=== PATIENT | male | born 1995 | race Caucasian/White ===

== ENCOUNTER 2016-10-16 04:32 | Observation (INO) | payer OTHER ==
[2016-10-16] MEDS ORDERED: NS 1,000 ML IV ONE (04:53)
--- NOTE | 2016-10-16 04:53 | EDPHY ---
H & P Stated Complaint: RUQ pain, diarrhea, nausea x 2 weeks HPI/ROS: Chief Complaint: Abdominal pain, diarrhea HPI: 21-year-old male woke this morning with pain in the right side of his abdomen. Some nausea no vomiting. Patient states that he has been having diarrhea for the last 2 weeks ever since returning from a week-long trip to [place]. He has been having intermittently loose to watery stools 2 to 3 times a day for the last 2 weeks. No blood. Has no fevers, some chills. Has not had any pain or cramping prior to today. This morning the pain woke him up from sleep. Is about a 6/10. It is no right middle abdomen. It is constant. There are no aggravating or alleviating factors. ROS: 10 point Review of Systems is negative except as noted in the HPI. PMH: None Medications: None Allergies: Sulfa Social History: No smoking, positive alcohol, occasional marijuana Family History: non-contributory Physical Exam: Gen: Awake, Alert, No Distress HEENT: Nose: no rhinorrhea Eyes: PERRLA, EOMI Mouth: Moist mucosa Neck: Supple, no JVD Chest: nontender, lungs clear to auscultation Heart: S1, S2 normal, no murmur Abd: Soft, he has tenderness in the right lower quadrant right at McBurney's point, no rebound, no guarding Back: no CVA tenderness, no midline tenderness Ext: no edema, non-tender Skin: no rash Neuro: CN II-XII intact, Sensation grossly intact, Strength 5/5 in bilateral upper and lower extremities - Personal History Current Tetanus Diphtheria and Acellular Pertussis (TDAP): Yes - Medical/Surgical History Hx Asthma: No Hx Chronic Respiratory Disease: No Hx Diabetes: No Hx Cardiac Disease: No Hx Renal Disease: No Hx Cirrhosis: No Hx Alcoholism: No Hx HIV/AIDS: No Hx Splenectomy or Spleen Trauma: No Other PMH: denies - Social History Smoking Status: Never smoked Constitutional: Initial Vital Signs Temperature (C) 36.9 C 10/16/16 04:36 Heart Rate 64 10/16/16 04:36 Respiratory Rate 18 10/16/16 04:36 Blood Pressure 137/82 H 10/16/16 04:36 O2 Sat (%) 97 10/16/16 04:36 O2 Delivery Mode Room Air Allergies/Adverse Reactions: Sulfa (Sulfonamide Antibiotics) Allergy (Verified 10/16/16 04:35) Home Medications: Medication Instructions Recorded NK [No Known Home Meds] 10/16/16 Medical Decision Making - Diagnostics Imaging Results: CT scan shows an 8.2 mm appendix consistent with early acute appendicitis as interpreted by Dr. Reina. ED Course/Re-evaluation: 21-year-old male has been having 2 weeks of diarrhea and now has right lower quadrant abdominal pain and tenderness. Will obtain blood work and a CT scan of his abdomen and pelvis to rule out acute appendicitis. He has no right upper quadrant tenderness. No epigastric tenderness. CT scan shows an 8.2 mm appendicitis. There is no fluid. No abscess cut, no perforation. I have discussed with Dr. Grey, surgery. He will see the patient in the ED. - Data Points Laboratory Results: Laboratory Results 10/16/16 05:05 10/16/16 05:05 10/16/16 10/16/16 10/16/16 05:29 05:05 05:05 WBC 4.80 10^3/uL 10^3/uL (3.80-9.50) RBC 5.12 10^6/uL 10^6/uL (4.40-6.38) Hgb 15.9 g/dL g/dL (13.7-17.5) Hct 44.5 % % (40.0-51.0) MCV 86.9 fL fL (81.5-99.8) MCH 31.1 pg pg (27.9-34.1) MCHC 35.7 g/dL g/dL (32.4-36.7) RDW 11.8 % % (11.5-15.2) Plt Count 191 10^3/uL 10^3/uL (150-400) MPV 9.1 fL fL (8.7-11.7) Neut % (Auto) 57.1 % % (39.3-74.2) Lymph % (Auto) 30.2 % % (15.0-45.0) [place] % (Auto) 8.1 % % (4.5-13.0) Eos % (Auto) 4.0 % % (0.6-7.6) Baso % (Auto) 0.2 % L % (0.3-1.7) Nucleat RBC Rel Count 0.0 % % (0.0-0.2) Absolute Neuts (auto) 2.74 10^3/uL 10^3/uL (1.70-6.50) Absolute Lymphs (auto) 1.45 10^3/uL 10^3/uL (1.00-3.00) Absolute Monos (auto) 0.39 10^3/uL 10^3/uL (0.30-0.80) Absolute Eos (auto) 0.19 10^3/uL 10^3/uL (0.03-0.40) Absolute Basos (auto) 0.01 10^3/uL L 10^3/uL (0.02-0.10) Absolute Nucleated RBC 0.00 10^3/uL 10^3/uL (0-0.01) Immature Gran % 0.4 % % (0.0-1.1) Immature Gran # 0.02 10^3/uL 10^3/uL (0.00-0.10) Sodium 142 mEq/L mEq/L (134-144) Potassium 4.1 mEq/L mEq/L (3.5-5.2) Chloride 103 mEq/L mEq/L (97-110) Carbon Dioxide 26 mEq/l mEq/l (22-31) Anion Gap 13 mEq/L mEq/L (8-16) BUN 20 mg/dL mg/dL (7-23) Creatinine 1.3 mg/dL mg/dL (0.7-1.3) Estimated GFR > 60 Glucose 91 mg/dL mg/dL (70-100) Calcium 9.8 mg/dL mg/dL (8.5-10.4) Total Bilirubin 0.7 mg/dL mg/dL (0.1-1.4) Conjugated Bilirubin 0.3 mg/dL mg/dL (0.0-0.5) Unconjugated Bilirubin 0.4 mg/dL mg/dL (0.0-1.1) AST 26 IU/L IU/L (17-59) ALT 30 IU/L IU/L (21-72) Alkaline Phosphatase 70 IU/L IU/L (38-126) Total Protein 7.8 g/dL g/dL (6.3-8.2) Albumin 4.8 g/dL g/dL (3.5-5.0) Lipase 82.0 IU/L IU/L (23-300) Urine Color YELLOW Urine Appearance CLEAR Urine pH 6.0 (5.0-7.5) Ur Specific [place] 1.029 (1.002-1.030) Urine Protein NEGATIVE (NEGATIVE) Urine Ketones NEGATIVE (NEGATIVE) Urine Blood NEGATIVE (NEGATIVE) Urine Nitrate NEGATIVE (NEGATIVE) Urine Bilirubin NEGATIVE (NEGATIVE) Urine Urobilinogen NEGATIVE EU EU (0.2-1.0) Ur Leukocyte Esterase NEGATIVE (NEGATIVE) Urine Glucose NEGATIVE (NEGATIVE) Medications Given: Discontinued Medications Sodium Chloride (Ns) 1,000 mls @ 0 mls/hr IV ONCE ONE PRN Reason: Wide Open Stop: 10/16/16 04:54 Last Admin: 10/16/16 05:05 Dose: 1,000 mls Departure - Departure Disposition: [facility] Inpatient Acute Clinical Impression: Acute appendicitis Condition: Fair Referrals: NONE *PRIMARY CARE P,. [Primary Care Provider] - As per Instructions
[2016-10-16 05:12] LABS: % IMMATURE GRANULYOCYTES 0.4 % (0.0-1.1); ABSOLUTE IMMATURE GRANULOCYTES 0.02 10^3/uL (0.00-0.10); ADD DIFF? NO; ADD MORPH? NO; ADD SCAN? NO; ATYPICAL LYMPHOCYTE FLAG 50 (0-99); FRAGMENT RBC FLAG 0 (0-99); HEMATOCRIT 44.5 % (40.0-51.0); HEMOGLOBIN 15.9 g/dL (13.7-17.5); LEFT SHIFT FLG 0 (0-99); LIPEMIA HEMOLYSIS FLAG 90 (0-99); MEAN CELL HEMOGLOBIN 31.1 pg (27.9-34.1); MEAN CELL HEMOGLOBIN CONCENTR. 35.7 g/dL (32.4-36.7); MEAN CELL VOLUME 86.9 fL (81.5-99.8); MEAN PLATELET VOLUME 9.1 fL (8.7-11.7); PLATELET CLUMPS FLAG 60 (0-99); PLATELET COUNT 191 10^3/uL (150-400); RED BLOOD CELL COUNT 5.12 10^6/uL (4.40-6.38); RED CELL DISTRIBUTION WIDTH 11.8 % (11.5-15.2)
[2016-10-16] MEDS ORDERED: IOPAMIDOL (ISOVUE-300) 100 ML BTL ONE (05:28)
[2016-10-16 05:31] LABS: ALANINE AMINOTRANSFERASE 30 IU/L (21-72); ALBUMIN 4.8 g/dL (3.5-5.0); ALKALINE PHOSPHATASE 70 IU/L (38-126); ANION GAP 13 mEq/L (8-16); ASPARTATE AMINOTRANSFERASE 26 IU/L (17-59); BILIRUBIN,TOTAL 0.7 mg/dL (0.1-1.4); BILIRUBIN-CONJUGATED 0.3 mg/dL (0.0-0.5); BILIRUBIN-UNCONJUGATED 0.4 mg/dL (0.0-1.1); CALCIUM 9.8 mg/dL (8.5-10.4); CARBON DIOXIDE 26 mEq/l (22-31); CHLORIDE 103 mEq/L (97-110); CREATININE 1.3 mg/dL (0.7-1.3); GLOMERULAR FILTRATION RATE > 60; GLUCOSE 91 mg/dL (70-100); POTASSIUM 4.1 mEq/L (3.5-5.2); SODIUM 142 mEq/L (134-144); TOTAL PROTEIN 7.8 g/dL (6.3-8.2)
[2016-10-16 05:50] LABS: COLOR YELLOW; LEUKOCYTE ESTERASE,URINE NEGATIVE (NEGATIVE); NITRITE,URINE NEGATIVE (NEGATIVE)
[2016-10-16] MEDS ORDERED: ERTAPENEM 1 GM in NS 100 ML IV ONE (06:13)
[2016-10-16] MEDS ORDERED: BUPIVACAINE 0.5% 30 ML SDV ONE ×2 (06:22→07:15)
[2016-10-16 06:27] VITALS: RESP 16
[2016-10-16] MEDS ORDERED: MIDAZOLAM 2 MG/2 ML VIAL IVP ONE (06:55)
[2016-10-16] MEDS ORDERED: LR 1,000 ML IV ONE (07:05)
--- NOTE | 2016-10-16 07:06 | PDANEPAE ---
ANE History of Present Illness 21 year old with appendicitis ANE Past Medical History Past Medical History: Smokes marijuana weekly, ETOH 3 per week Past surgical history wisdom teeth, BIH - Pulmonary History Hx Oxygen in Use at Home: No - Endocrine History Hx Diabetes: No ANE Review of Systems Review of systems is: negative ANE Patient History - Allergies Allergies/Adverse Reactions: Sulfa (Sulfonamide Antibiotics) Allergy (Verified 10/16/16 04:35) - Home Medications Home Medications: NK [No Known Home Meds] 10/16/16 [Last Taken Unknown] - NPO status NPO Since - Liquids (Date): 10/16/16 NPO Since - Liquids (Time): 04:00 NPO Since - Solids (Date): 10/15/16 NPO Since - Solids (Time): 20:30 - Smoking Hx Smoking Status: Never smoked ANE Labs/Vital Signs - Labs Result Diagrams: 10/16/16 05:05 10/16/16 05:05 - Vital Signs Blood Pressure: 152/80 Heart Rate: 71 Respiratory Rate: 16 O2 Sat (%): 97 Height: 180.34 cm Weight: 79.379 kg ANE Physical Exam - Airway Mallampati Score: Class 1 Mouth exam: normal dental/mouth exam - Pulmonary Pulmonary: no respiratory distress - Cardiovascular Cardiovascular: regular rate and rhythym - ASA Status ASA Status: I ANE Anesthesia Plan Anesthesia Plan: general endotracheal anesthesia
--- NOTE | 2016-10-16 07:06 | PDGENHP ---
History and Physical History and Physical: 21 male with rlq pain for 12 hrs exacerbated by movement, some nausea and anorexia/ complicated by diarrhea for [address] shows early appendicitis/ risks and options fully discussed phx: bih all: sulfa Meds: none ros: - 10 pt review fam hx: crohns afebrile heent: nonicteric, wo adenopathy, perrla, no oral lesions chest clear cor: rr wo m abd: soft, tender rlq with some guarding, wo hernias gent: ok extr: ok neuro: symmetric skin: ok imp: early appe/ risks and options fully discussed plan lap appe
[2016-10-16] MEDS ORDERED: ceFAZolin 1 GM/5 ML SYR ONE (07:15)
[2016-10-16] MEDS ORDERED: HEPARIN 1000 UNIT/1 ML MDV ONE (07:15)
[2016-10-16] MEDS ORDERED: fentaNYL 100 MCG/2 ML INJ ONE ×2 (07:25→07:47)
[2016-10-16] MEDS ORDERED: PROPOFOL 200 MG/20 ML VIAL ONE (07:25)
[2016-10-16] MEDS ORDERED: ROCURONIUM 50 MG/5 ML VIAL ONE ×2 (07:48)
[2016-10-16] MEDS ORDERED: HYDROCODONE/APAP 5/325 TAB PO PRN (07:58)
[2016-10-16] MEDS ORDERED: MEPERIDINE 25 MG/ML SYR IVP PRN (07:58)
[2016-10-16] MEDS ORDERED: fentaNYL 100 MCG/2 ML INJ IVP PRN (07:58)
[2016-10-16] MEDS ORDERED: NALOXONE HCL 0.4 MG/ML INJ IVP PRN (07:58)
[2016-10-16] MEDS ORDERED: OXYCODONE/APAP 5/325 TAB PO PRN (07:58)
[2016-10-16] MEDS ORDERED: ONDANSETRON 4 MG/2 ML VIAL IVP PRN (07:58)
[2016-10-16] MEDS ORDERED: PROMETHAZINE HCL 25 MG/ML INJ IVP PRN (07:58)
--- NOTE | 2016-10-16 08:18 | POSTOPPROG ---
Post Op Note Date of Operation: 10/16/16 Surgeon: Sushil Grey Anesthesiologist: Brenden Warm Anesthesia: GET(General Endotracheal) Pre-op Diagnosis: acute appendicitis Post-op Diagnosis: same Procedure: Lap appy Findings: early appendicitis Inf/Abcess present in the surg proc area at time of surgery?: Yes Depth: Organ Space EBL: Minimal Complications: none Specimen(s): appendix to path
--- NOTE | 2016-10-16 08:29 | POSTANESTH ---
Post Anesthetic Evaluation Cardiovascular Status: Normal, Stable Respiratory Status: Normal, Stable Level of Consciousness/Mental Status: Can Participate in Eval, Alert and Oriented Pain Control: Adequate, Prn Tx Ordered Nausea/Vomiting Control: Adequate, Prn Tx Ordered Complications Possibly Related to Anesthesia: None Noted
[2016-10-16 09:50] VITALS: BP 111/79; PULSE 73; TEMP 97.7; O2SAT 96
== END 2016-10-16 10:05 | disposition home or self-care (01) ==
LOC: EDBD 04:32
PROVIDERS: ADMIT Surgery; ATTEND Surgery
PROC: 0DTJ4ZZ Resection of Appendix, Percutaneous Endoscopic Approach (ICD-10-PCS; principal; 2016-10-16 06:30)
DX: K35.80 Unspecified acute appendicitis (principal); Z88.2 Allergy status to sulfonamides
CPT/HCPCS: 96365; J1335; J2250; J2704; J3010; Q9967